=== PATIENT | female | born 1960 | race Caucasian/White ===

== ENCOUNTER → 2021-01-28 | Outpatient (CLI) | payer BC ==
[~2021-01-28] MED LIST: COLACE100 MG PO; ESTRADIOL1 EAC3 TD; HYDROCODON-ACE1 EAC1 PO; LEVAQUIN750 MG PO; LEVOXYL75 MCG PO; OMEPRAZOLE20 MG PO; PEPCID40 MG PO; PROGESTERONE100 MG PO; TOPROL XL50 MG PO
== END ==
LOC: MAMO 01-27 14:30 → US 01-27 14:30
DX: R13.10 Dysphagia, unspecified (principal); E04.2 Nontoxic multinodular goiter
CPT/HCPCS: 76536

== ENCOUNTER → 2021-08-19 | Outpatient (CLI) | payer BC | LOC: CT 12:46 | DX: R22.1 Localized swelling, mass and lump, neck (principal); E04.1 Nontoxic single thyroid nodule | CPT/HCPCS: 36415; 70491; 82565; Q9967 ==

== ENCOUNTER → 2021-10-31 | Outpatient (CLI) | payer BC | LOC: US 10-28 10:00 | DX: E04.2 Nontoxic multinodular goiter (principal) | CPT/HCPCS: 76536 ==

== ENCOUNTER → 2022-02-24 | Outpatient (CLI) | payer BC | LOC: KOH-I 02-20 08:15 | DX: E55.9 Vitamin D deficiency, unspecified (principal) | CPT/HCPCS: 70551 ==